=== PATIENT | male | born 1995 | race Caucasian/White ===

== ENCOUNTER 2017-04-05 23:46 | Emergency (ER) | payer OTHER ==
--- NOTE | 2017-04-05 23:52 | EDPHY ---
H & P HPI/ROS: Chief Complaint: Alcohol intoxication, vomiting HPI: 21-year-old male who was found in his apartment intoxicated. Patient passed out after vomiting. Is unable to ambulate on their own. Patient brought in by EMS for further evaluation. No obvious signs of trauma per EMS. Remainder of history is unobtainable secondary to the patient's intoxication. ROS: 10 point Review of Systems is negative except as noted in the HPI. PMH: Denies Social History: Positive for alcohol Family History: non-contributory Physical Exam: Gen: Somnolent, responds to painful stimuli, maintaining airway, smells of alcohol and emesis HEENT: Atraumatic Nose: no epistaxis or deformity Eyes: PERRLA, EOMI Mouth: Moist mucosa Neck: Supple, no step-offs or deformity Chest: Atraumatic, lungs clear to auscultation Heart: S1, S2 normal, no murmur Abd: Soft, non-tender, no guarding Back: Atraumatic Ext: no edema, atraumatic Skin: no rash Neuro: Sensation grossly intact, Strength 5/5 in bilateral upper and lower extremities Constitutional: Initial Vital Signs Temperature (C) 36.6 C 04/05/17 23:53 Heart Rate 89 04/05/17 23:53 Respiratory Rate 18 04/05/17 23:53 Blood Pressure 109/69 04/05/17 23:53 O2 Sat (%) 99 04/05/17 23:53 O2 Delivery Mode Room Air Allergies/Adverse Reactions: No Known Allergies Allergy (Unverified 04/05/17 23:53) Home Medications: Medication Instructions Recorded NK [No Known Home Meds] 04/05/17 Medical Decision Making ED Course/Re-evaluation: Patient is now awake and appropriate. Ambulating unassisted to the bathroom. No current complaints. Medically cleared for discharge to home. - Data Points Medications Given: Discontinued Medications Sodium Chloride (Ns) 1,000 mls @ 0 mls/hr IV EDNOW ONE; Wide Open PRN Reason: Protocol Stop: 04/05/17 23:54 Last Admin: 04/05/17 23:58 Dose: 1,000 mls Ondansetron HCl (Zofran) 4 mg IVP EDNOW ONE Stop: 04/05/17 23:54 Last Admin: 04/05/17 23:58 Dose: 4 mg Ondansetron HCl (Zofran) 4 mg IVP EDNOW ONE Stop: 04/06/17 00:29 Last Admin: 04/06/17 00:56 Dose: 4 mg Departure - Departure Disposition: Home, Routine, Self-Care Clinical Impression: Alcoholic intoxication Condition: Good Instructions: Alcohol Intoxication (ED) Referrals: Patient,NotPresent [Primary Care Provider] - As per Instructions
[2017-04-05] MEDS ORDERED: ONDANSETRON 4 MG/2 ML VIAL IVP ONE (23:53)
[2017-04-05] MEDS ORDERED: NS 1,000 ML IV ONE (23:53)
[2017-04-05] MEDS ORDERED: ONDANSETRON 4 MG/2 ML VIAL ONE (23:58)
[2017-04-06] MEDS ORDERED: ONDANSETRON 4 MG/2 ML VIAL IVP ONE (00:28)
[2017-04-06 04:17] VITALS: RESP 18
[2017-04-06 06:33] VITALS: BP 108/74; PULSE 74; TEMP 97.5; O2SAT 96
== END 2017-04-06 06:36 | disposition home or self-care (01) ==
LOC: EDBD 23:46
DX: F10.129 Alcohol abuse with intoxication, unspecified (principal); E86.9 Volume depletion, unspecified
CPT/HCPCS: 96374; J2405